=== PATIENT | male | born 1980 | race Hispanic/Latino ===

== ENCOUNTER 2017-07-20 17:42 | Observation (INO) | payer OTHER, SELFPAY ==
[2017-07-20 18:52] LABS: Bilirubin Negative (Negative); Blood, Urine Large (Negative); Clarity CLOUDY (Clear); Glucose, Urine (Dipstick) Negative (Negative); Leukocyte Large (Negative); Nitrite Negative (Negative); Protein, Urine (Dipstick) 30 mg/dL (Neg-Trace); Specific Gravity, Urine 1.017 (1.002-1.036); Urobilinogen 0.2 mg/dL (0.2-1.0); pH, Urine 6.5 (5.0-9.0)
[2017-07-20 18:58] LABS: Bacteria/HPF Rare-Few HPF (None Seen); Hyaline Casts/LPF 0-3 HYALINE CAST LPF (0-3 Hyaline); Pathc Cast-AUWi Flag 0.13 (0-2.49); RBC/HPF GREATER THAN 50-TNTC HPF (0-3); Squamous Epithelial None Seen HPF (0-3)
[2017-07-20 19:03] LABS: #Eosinphils 0.1 thou/uL (0.0-0.7); #Lymphocytes 1.6 thou/uL (1.20-3.40); #Monocytes 1.2 thou/uL (0.11-0.59); #Neutrophils 10.2 thou/uL (1.40-6.50); %Basophils 0.3 % (0.0-1.0); %Eosinophils 0.6 % (0.0-10.0); %Lymphocytes 12.5 % (21.0-51.0); %Monocytes 9.1 % (0.0-10.0); %Neutrophils 77.5 % (42.0-75.0); Hemoglobin 17.1 g/dL (14.0-18.0); Mean Corpuscular HGB CONC 32.5 g/dL (32.0-36.0); Mean Corpuscular Hemoglobin 28.5 pg (27.0-31.0); Mean Corpuscular Volume 87.5 fl (80.0-94.0); Mean Platelet Volume 7.8 fL (7.4-10.4); Platelet Count 166 thou/uL (130-400); RBC Distribution Width 14.2 % (11.5-14.5); Red Blood Cell (RBC) Count 6.03 mill/uL (4.70-6.10); White Blood Cell (WBC) Count 13.1 thou/uL (4.8-10.8)
[2017-07-20 19:28] LABS: ALT (SGPT) 28 U/L (8-55); AST (SGOT) 25 U/L (5-34); Alkaline Phosphatase 192 U/L (40-150); Anion Gap 13 mmol/L (10-20); BUN (Urea Nitrogen) 32 mg/dL (8.9-20.6); Bilirubin, Total 0.9 mg/dL (0.2-1.2); Calc. Creatinine Clearance 0 mL/min (70-130); Calcium 9.6 mg/dL (7.8-10.44); Carbon Dioxide 29 mmol/L (22-29); Chloride 99 mmol/L (98-107); Estimated GFR-MDRD 31; Globulin 4.7 g/dL (2.4-3.5); Glucose 98 mg/dL (70-105); Potassium 5.3 mmol/L (3.5-5.1); Protein, Total 8.7 g/dL (6.0-8.3); Sodium 136 mmol/L (136-145)
[2017-07-20] MEDS ORDERED: Ondansetron HCl/PF 4 MG/2 ML Vial ONE (21:34)
[2017-07-20] MEDS ORDERED: Ketorolac Tromethamine 30 MG/ML VIAL ONE (21:34)
--- NOTE | 2017-07-20 23:08 | CT ---
CT ABDOMEN NONCONTRAST CT PELVIS NONCONTRAST: (urolithiasis protocol) DATE: 07/20/17 TIME: 9:18 p.m. HISTORY: 37-year-old male with right flank pain, nausea, and difficulty urinary. COMPARISON: 01/31/17 TECHNIQUE: IV injection of iodinated contrast media: none Oral contrast media: none FINDINGS: Other than for urolithiasis, the lack of IV and oral contrast limits the evaluation. The previously demonstrated right sided percutaneous nephrostomy tube has been removed. There is a ne w finding of severe dilation of the entire right renal collecting system, and moderate dilation of th e entire right ureter, down to a new, irregularly triangular-shaped distal ureteral calculus measurin g approximately 5 x 4 x 3 mm, located at the S1-2 level of the pelvic inlet. A short distance of appr oximately 1 or 2 cm inferior to this, there is another distal ureteral calculus measuring 5 x 5 x 4 m m. There is another new finding of right nephromegaly, and unorganized fluid around the right kidney, probably representing extravasated urine from pyelocalyceal blowout due to the high grade obstructio n. There is no calculus within the urinary bladder. Again noted is the extensive bilateral medullary nephrocalcinosis. In addition, there is also bilater al nephrolithiasis, with multiple discrete round renal calculi, ranging from 2 mm for most of them, u p to 4 mm for the largest one in a right renal upper pole calyx. Again demonstrated is the malrotation of the left kidney, with anteriorly facing left renal pelvis, w hich is mildly dilated, similar to the previous study. There is no dilation of the left ureter. The u rinary bladder calixto are mildly thickened diffusely (previous CT showed severe mural thickening of th e collapsed urinary bladder and the presence of a 7 mm calculus within the urinary bladder). The prev iously demonstrated suprapubic catheter has been removed. Again noted are the cholecystectomy clips. Within the limitations of a noncontrast scan, no gross abnormality is identified involving the liver, abdominal aorta, adrenals, pancreas, or spleen. No signs of acute colonic diverticulitis. Single mckayla gical clip is again noted at midline, slightly superior and posterior to the bladder dome. Normal branden endix. No small bowel dilation. No free fluid or free air within the abdominal cavity or pelvic cavit y. Lung bases are grossly clear. IMPRESSION: 1. High grade right ureteral obstruction by two distal right ureteral calculi, causing severe ri ght hydronephrosis. 2. Bilateral nephrolithiasis. 3. Bilateral nephrocalcinosis. The differential diagnosis for this is renal tubular acidosis and medullary sponge kidney. 4. Malrotation of the left kidney. BELLA Jimenez POS: ROSA
[2017-07-20 23:10] LABS: PTT 30.8 SEC (22.9-36.1); Prothrombin Time 13.4 SEC (12.0-14.7)
[2017-07-20] MEDS ORDERED: cefTRIAXone\\ROCEPHIN 1 GM in Syringe 10 ML SLOW IVP SCH (23:30)
--- NOTE | 2017-07-20 23:32 | RAD ---
RADIOGRAPH CHEST 1 VIEW: 07/20/17 HISTORY: 37-year-old male for preoperative clearance. FINDINGS: There are no air space densities, pulmonary edema, pneumothorax, or cardiomegaly. The lateral costop hrenic angles are sharp. There are sternotomy wires. There is focal lentiform small density at the le ft lateral lower lung zone, probably representing scar. IMPRESSION: 1. No acute cardiopulmonary findings. 2. Evidence for previous open heart surgery. brendon [] POS: ROSA
[2017-07-21] MEDS ORDERED: Ondansetron HCl/PF 4 MG/2 ML Vial IVP PRN (00:44)
[2017-07-21] MEDS ORDERED: Ondansetron ODT 4 MG TAB SL PRN (00:44)
[2017-07-21] MEDS ORDERED: Morphine 2 mg/2ml in 0.9% NaCl PF SYRINGE SLOW IVP PRN ×2 (00:45→00:46)
[2017-07-21 00:56] VITALS: BMI 27.8
[2017-07-21] MEDS ORDERED: [UNRECOGNIZED DRUG - REMARK] FS SCH (01:00)
[2017-07-21] MEDS: Sodium Chloride 0.9% 1,000 ML IV SCH ×4 (01:15→20:32)
--- NOTE | 2017-07-21 02:19 | PDOC.EVN ---
Event Note - Event Note Event Note: [id number] H&P dictated 1. UTI 2. KAROLINE 3. Rt Hydronephrosis Plan: see orders
[2017-07-21] MEDS: Piperacillin/Tazobactam 3.375 GM in Sodium Chloride 0.9% 100 ML IVPB SCH ×2 (03:27→08:11)
[2017-07-21 04:33] LABS: #Lymphocytes 1.3 thou/uL (1.20-3.40); #Monocytes 1.5 thou/uL (0.11-0.59); #Neutrophils 10.7 thou/uL (1.40-6.50); %Eosinophils 0.4 % (0.0-10.0); %Lymphocytes 9.8 % (21.0-51.0); %Monocytes 10.7 % (0.0-10.0); %Neutrophils 79.1 % (42.0-75.0); Hemoglobin 15.7 g/dL (14.0-18.0); Mean Corpuscular Volume 87.5 fl (80.0-94.0); Mean Platelet Volume 8.1 fL (7.4-10.4); Platelet Count 168 thou/uL (130-400); RBC Distribution Width 14.2 % (11.5-14.5); Red Blood Cell (RBC) Count 5.62 mill/uL (4.70-6.10); White Blood Cell (WBC) Count 13.6 thou/uL (4.8-10.8)
[2017-07-21 04:46] LABS: ALT (SGPT) 25 U/L (8-55); AST (SGOT) 21 U/L (5-34); Albumin 3.4 g/dL (3.5-5.0); Alkaline Phosphatase 175 U/L (40-150); Anion Gap 13 mmol/L (10-20); BUN (Urea Nitrogen) 33 mg/dL (8.9-20.6); Bilirubin, Total 1.2 mg/dL (0.2-1.2); Calc. Creatinine Clearance 54 mL/min (70-130); Calcium 8.7 mg/dL (7.8-10.44); Carbon Dioxide 26 mmol/L (22-29); Chloride 102 mmol/L (98-107); Estimated GFR-MDRD 33; Globulin 3.8 g/dL (2.4-3.5); Glucose 97 mg/dL (70-105); Potassium 3.7 mmol/L (3.5-5.1); Protein, Total 7.2 g/dL (6.0-8.3); Sodium 137 mmol/L (136-145)
[2017-07-21] MEDS: Carvedilol 3.125 MG TAB PO SCH ×3 (08:01→17:56)
[2017-07-21] MEDS: Famotidine 20 MG TAB PO SCH ×2 (08:02→19:40)
--- NOTE | 2017-07-21 08:25 | HP ---
DATE OF ADMISSION: 07/20/2017 CHIEF COMPLAINT: Right-sided flank pain. HISTORY OF PRESENT ILLNESS: The patient is 37 years old male with past medical history of diabetes t ype 2, coronary artery disease, hyperlipidemia, nephrolithiasis, now came to the ER because of the ri ght-sided flank pain. Pain is stabbing kind of pain, 10/10, currently 2/10, improved with some pain medication. The pain started today, radiates towards the right inguinal region. Complains of some p assing stones in the urine also. Denies any fever, denies any chills. Denies any nausea, denies any vomiting at this time. Denies any dizziness, denies any palpitations. PAST MEDICAL HISTORY: As per HPI. PAST SURGICAL HISTORY: CABG. SOCIAL HISTORY: Denies smoking, denies alcohol, denies any drugs. FAMILY HISTORY: Positive for heart problems. MEDICATIONS: Reviewed. REVIEW OF SYSTEMS: Constitutional: Denies any fever, denies any chills. Eyes: Denies any vision p roblems. Ears: Denies any hearing problems. Neck: Denies any neck pain. Cardiovascular: Denies any chest pain, denies any palpitations. Respiratory: Denies any cough, denies production. Gastroi ntestinal: Positive for right flank pain. Genitourinary: Positive for stones in the urine. Psychi atric: Denies anxiety. Integumentary: Denies any rash. Musculoskeletal: Denies any joint deformi ties. All other review of systems are reviewed and are negative. PHYSICAL EXAMINATION: CONSTITUTIONAL/VITAL SIGNS: At the time of H and P performed, blood pressure is 119/78, temperature 90, pulse ox 97%, heart rate 97. GENERAL APPEARANCE: The patient appears comfortable. HEENT: Pupils equal, round, and reactive to light. Anterior nares patent. Nose normal. Ears yecenia l. Teeth intact. Tongue is moist. NECK: Supple. No JVD. CARDIOVASCULAR: S1, S2 present. Regular rate and rhythm. No murmurs, no rubs, no gallops. RESPIRATORY: No wheezing, no rhonchi. Breath sounds bilaterally. GASTROINTESTINAL: Abdomen is soft, nontender. No guarding, no organomegaly, no masses felt. MUSCULOSKELETAL: No edema. CRANIAL NERVE SYSTEM: Awake, follows commands. Strength intact, sensory intact. GENITOURINARY: Positive for mild right CVA tenderness. PSYCHIATRIC: Mood appropriate at this time. LABORATORY AND DIAGNOSTIC DATA: At the time of H and P performed, white count 13.1, hemoglobin 17.1, platelet count is 166. PT 13.4, INR 1. BMP shows sodium 136, potassium 5.3, chloride 99, CO2 of 29 , BUN of 32, creatinine 2.40, alkaline phosphatase 192. UA greater than 50 numerous rbc's, greater t lofton 50 to too numerous to count wbc's. CT abdomen and pelvis done in the ER, it is positive for high grade right ureteral obstruction by 2 distal right ureteral calculus causing severe right hydronephr osis, bilateral nephrocalcinosis. ASSESSMENT AND PLAN: The patient is 37 years old male. 1. Severe right-sided hydronephrosis plus acute kidney injury. Plan is to keep the patient n.p.o. The patient is scheduled for in the morning. We will monitor patient closely. 2. Hypertension. Continue home treatments. 3. History of coronary artery disease, status post coronary artery bypass graft. We will get cardio logy to evaluate the patient for possible cardiac clearance. 4. Urinary tract infection. Plan is to place the patient on broad spectrum antibiotics. The case was discussed in detail with the patient.
--- NOTE | 2017-07-21 11:08 | RAD ---
KUB: INDICATION: Assess for renal stones. COMPARISON: CT of the abdomen and pelvis dated 07/20/17. FINDINGS: There are small punctate calculi overlying the renal shadows bilaterally. The previously seen right distal ureteral calculi on the comparison CT are not clearly evident on the current abdominal radiogr aph. A small surgical clip within the pelvis is similar. No acute osseous abnormality is evident. The bowel gas pattern is unobstructed. IMPRESSION: 1. Stable bilateral nephrolithiasis. 2. The previously seen right distal ureteral calculi are not definite seen on the current exam. The findings were discussed with Dr. Sosa at 10:25 a.m. on 07/11/17. Clinically, the patient had r eportedly passed these 2 stones overnight. CODE CR POS: ROSA
[2017-07-21] MEDS ORDERED: Ciprofloxacin 500 MG TAB PO SCH ×2 (11:15→20:00)
--- NOTE | 2017-07-21 12:47 | CON ---
DATE OF CONSULTATION: 07/21/2017 INPATIENT CONSULTATION PRIMARY UROLOGIST: Dr. Kike Jovel. HISTORY OF PRESENT ILLNESS: Mr. Lantigua is a 36-year-old male, followed by Dr. Jovel. The patient presented with 1 day history of right-sided flank pain. He had mild leukocytosis of 13, creatinine of 2.2 with baseline creatinine variable from 1.4-2.5. The patient does have complicated urologic history in which he has had high-grade prostatic sphincteric urethral stricture , due to impacted urethral calculi, patient also known to have history of bladder stone, multiple bilateral kidney stones nephrocalcinosis. I reviewed his history on [facility], as well as [facility] as he has had procedures at both hospitals by Dr. Jovel. He previously had 2 cm stone in the bladder, underwent cystolitholapaxy, ureteral stent placement this year , presented with UTI, sepsis, complicated with chronic renal insufficiency. In 12/2016, he underwent urethral stricture dilatation, suprapubic tube insertion, and subsequent nephrostomy tube of obstructing ureteral calculi. This has been subsequently treated by Dr. Jovel. He underwent nephrostogram demonstrating no evidence of obstructing ureteral calculi. Upon review of [facility] chart, he underwent direct vision internal urethrotomy, his voiding status was monitored with suprapubic tube. Urodynamics demonstrated adequate bladder pressure with no evidence of obstructive parameters on peak flow; therefore his suprapubic tube was removed u 04/25/2017 as well as his nephrostomy tube. He states that his urinary caliber is adequate, denies sensation of incomplete void. Presents due to right flank pain. CT does demonstrate severe right hydronephrosis, demonstrating 2 ureteral calculi nidus in the distal ureter, each measuring 5-6 mm. There is no gross evidence of bladder stone. I did review the CT myself demonstrating that previous imaging demonstrated significant bladder wall thickening with bladder stone. His bladder appears to be normal morphology on recent CT scan. PAST MEDICAL HISTORY: 1. Coronary artery disease, status post CABG. 2. History of hypospadias. 3. Chronic renal insufficiency. 4. Bilateral nephrocalcinosis, recurrent. 5. Urethral stricture disease due to impacted urethral calculi. PAST SURGICAL HISTORY: Includes, 1. On 12/2015 laser lithotripsy of 2 cm bladder stone, left stent, left retrograde. 2. On 12/2016 cystoscopy, urethral stricture dilatation suprapubic tube placement. 3. Direct vision internal urethrotomy, 03/2017. 4. Coronary artery bypass graft, 03/2017. ALLERGIES: No known drug allergies. REVIEW OF SYSTEMS: Ten point review of systems is reviewed. SOCIAL HISTORY: Disabled. No children. PHYSICAL EXAMINATION: VITAL SIGNS: Stable. He is afebrile. Currently states that he feels significantly better with fluids and in pain management. Denies nausea, vomiting, fever at this time. HEENT: Unremarkable. HEART: Regular rate. LUNGS: Clear. ABDOMEN: Soft, surgical incisions consistent with above surgery. No suprapubic distention or tenderness appreciated. His SP tube site is noted in the lower abdomen. GENITOURINARY: Uncircumcised phallus, glandular hypospadias with no significant evidence of meatal stenosis. Testes are descended with no evidence of intratesticular mass, nontender. EXTREMITIES: No cyanosis, clubbing or edema. NEUROLOGIC: No gross focal deficits. PSYCHIATRIC: Appears appropriate. PERTINENT LABORATORY DATA: White count of 13, hemoglobin 15, platelets 468, 79 segs. PT, PTT and INR is normal. BUN 33, admitting creatinine is 2.4, this morning is 2.2. His baseline creatinine is variable from 1.4-2.5. Urinalysis is yellow, protein, greater than 50 RBCs, greater than 50 WBCs, negative epithelials, rare bacteria yellow large leukocytes. Urine culture is pending. He has been provided Rocephin and Levaquin in the ER, currently on Zosyn. IMAGIN07/20/2017 CT demonstrates severe right hydroureteronephrosis, prior right percutaneous nephrostomy tube and suprapubic tube has been subsequently removed. Two focus of right distal ureteral calculi measuring 5 x 4 x 3 mm at the level of S1-2, second nidus 5 x 5 x 5 x 4 mm just distal to this. Left kidney malrotated, no hydronephrosis, bilateral nephrocalcinosis. IMPRESSION AND PLAN: Mr. Lantigua is a pleasant 37-year-old male with history of: 1. Coronary artery disease status post coronary artery bypass graft. 2. Urologic issues of bilateral nephrocalcinosis, recurrent urolithiasis. 3. History of high-grade prostatic urethral stricture secondary to impacted stone treated, status post DVIU. 4. History of suprapubic tube and nephrostomy tube secondary to obstructing urethral stricture/ureteral stone treated and resolved. 5. Presents for new onset right flank pain due to distal ureteral calculi x2. I did discuss with the patient regarding indications for cystoscopy, right retrograde stent placement. Due to patient's history of high-grade urethral stricture, possibility of suprapubic tube, nephrostomy tube again was discussed with the patient. He desires to proceed. All questions have encouraged and answered. Patient is n.p.o. MTDD
--- NOTE | 2017-07-21 13:49 | PDOC.EVN ---
Event Note - Event Note Event Note: Chart reviewed. Patient seen. Discussed with urology service. Pt mel to be discharged home later today or tomorrow.
[2017-07-21] MEDS: Acetaminophen 325 MG TAB PO PRN ×2 (13:51→19:43)
[2017-07-21] MEDS ORDERED: Heparin 5,000 UNITS/ML VIAL SC SCH (21:00)
[2017-07-21] MEDS: cefTRIAXone\\ROCEPHIN 2 GM in Sodium Chloride 0.9% 100 ML IVPB SCH (23:10)
[2017-07-22] MEDS: Acetaminophen 325 MG TAB PO PRN ×2 (04:00→16:42)
[2017-07-22] MEDS: Carvedilol 3.125 MG TAB PO SCH ×3 (07:51→16:42)
[2017-07-22] MEDS: Famotidine 20 MG TAB PO SCH ×2 (07:51→20:24)
[2017-07-22] MEDS: Sodium Chloride 0.9% 1,000 ML IV SCH ×3 (07:55→22:53)
--- NOTE | 2017-07-22 11:04 | PRG ---
DATE OF SERVICE: 07/22/2017 INPATIENT PROGRESS NOTE SUBJECTIVE: The patient is ambulating in the hallway, in no acute distress. He states that he feels well. Denies flank pain, suprapubic tenderness, or sensation of incomplete void. PHYSICAL EXAMINATION: VITAL SIGNS: T-max of 102.6, T-current is 101.1, 106, 12, 94, 113/73. The patient voiding without significant issues. ABDOMEN: Soft. No CVA tenderness. No suprapubic tenderness, no blood per meatus. The patient voiding spontaneously. LABORATORY DATA: Urine culture and blood culture is pending thus far. IMPRESSION AND PLAN: 1. Mr. Lantigua is a pleasant 37-year-old male with history of bilateral nephrocalcinosis. 2. History of severe right hydronephrosis with two stone nidus spontaneously passed yesterday which I visualized myself, sent for chemical analysis. 3. The patient was kept inhouse due to fever, urinary tract infection component. He is on broad spectrum antibiotics with Levaquin, Rocephin. Clinically, he appears to be doing well. Informed patient that he will be monitored until final urine culture for appropriate sensitivity ATB. Continue IV fluids and broad spectrum antibiotics. will inform Dr. Jovel tomorrow to resume care. BEN
--- NOTE | 2017-07-22 14:06 | PDOC.PN ---
- Subjective Encounter Start Date: 07/22/17 Encounter Start Time: 10:00 Pt seen for followup re: UTI. No chest pain, shortness of breath. Had fever yesterday. - Objective Vital Signs & Weight: Vital Signs (12 hours) Temp Pulse Resp BP Pulse Ox 07/22/17 12:53 98.8 F 07/22/17 08:24 98.5 F 92 16 101/72 95 07/22/17 08:00 101.1 F H 106 H 12 07/22/17 04:26 94 L 07/22/17 03:20 101.1 F H 106 H 12 113/73 94 L I&O: 07/21/17 07/22/17 07/23/17 06:59 06:59 06:59 Intake Total 2450 Balance 2450 Result Diagrams: 07/21/17 03:14 07/21/17 03:14 Phys Exam - Physical Examination Constitutional: NAD HEENT: PERRLA, moist MMs, sclera anicteric, oral pharynx no lesions Neck: supple Respiratory: no wheezing, no rales, no rhonchi, clear to auscultation bilateral Cardiovascular: RRR, no rub Gastrointestinal: soft, non-tender, no distention, positive bowel sounds Musculoskeletal: pulses present Neurological: moves all 4 limbs Psychiatric: normal affect, A&O x 3 Skin: no rash, normal turgor, cap refill <2 seconds Dx/Plan (1) UTI (urinary tract infection) Status: Acute (2) HTN (hypertension) Code(s): I10 - ESSENTIAL (PRIMARY) HYPERTENSION Status: Chronic (3) CAD (coronary artery disease) Code(s): I25.10 - ATHSCL HEART DISEASE OF [place] CORONARY ARTERY W/O ANG PCTRS Status: Chronic (4) Nephrolithiasis Status: Chronic (5) Type 2 diabetes mellitus Status: Chronic - Plan continue antibiotics, out of bed/ambulate * . Continue IV antibiotics, urine cultures growing Enterococcus and yeast, await sensitivities. Monitor vital signs, titrate antihypertensives. Start accuchecks, insulin sliding scale. CAD stable. Review of Systems - Review of Systems Constitutional: Fever. negative: Chills, Sweats, Weakness, Malaise Respiratory: negative: Cough, Dry, Shortness of Breath, Hemoptysis, SOB with Excertion, Pleuritic Pain, Sputum, Wheezing Cardiovascular: negative: Chest Pain, Palpitations, Orthopnea, Paroxysmal Noc. Dyspnea, Edema, Light Headedness Gastrointestinal: negative: Nausea, Vomiting, Abdominal Pain, Diarrhea, Constipation, Melena, Hematochezia Genitourinary: negative: Dysuria, Frequency, Incontinence, Hematuria, Retention - Medications/Allergies Allergies/Adverse Reactions: Allergies Allergy/AdvReac Type Severity Reaction Status Date / Time No Known Drug Allergies Allergy Verified 03/16/17 15:17 Medications: Current Medications Acetaminophen (Tylenol) 650 mg PO Q4H PRN PRN Reason: Headache/Fever or Pain Last Admin: 07/22/17 04:00 Dose: 650 mg Carvedilol (Coreg) 3.125 mg PO BID-[facility] Last Admin: 07/22/17 07:55 Dose: Not Given Famotidine (Pepcid) 20 mg PO BID [facility] Last Admin: 07/22/17 07:51 Dose: 20 mg Sodium Chloride (Normal Saline 0.9%) 1,000 mls @ 125 mls/hr IV .Q8H [facility] Stop: 07/26/17 11:10 Last Admin: 07/22/17 07:55 Dose: 1,000 mls Ceftriaxone Sodium 2 gm/ (Sodium Chloride) 100 mls @ 200 mls/hr IVPB 2300 [facility] Last Admin: 07/21/17 23:10 Dose: 100 mls Levofloxacin 500 mg/ Device 100 mls @ 100 mls/hr IVPB 2359 [facility] Last Admin: 07/21/17 23:10 Dose: 100 mls No Aspirin 0 each FS ASDIR [facility] Sodium Chloride (Flush - Normal Saline) 10 ml IVF Q12HR [facility] Last Admin: 07/22/17 07:51 Dose: 10 ml Sodium Chloride (Flush - Normal Saline) 10 ml IVF PRN PRN PRN Reason: Saline Flush
[2017-07-22] MEDS ORDERED: Dextrose 5% in Water 1,000 ML IV PRN (14:13)
[2017-07-22] MEDS ORDERED: HumaLOG 300 UNITS/3 ML VIAL SC PRN (14:13)
[2017-07-22] MEDS ORDERED: Dextrose 50% Abboject 50 ML SYRINGE SLOW IVP PRN (14:13)
[2017-07-22] MEDS: cefTRIAXone\\ROCEPHIN 2 GM in Sodium Chloride 0.9% 100 ML IVPB SCH (22:54)
[2017-07-23] MEDS: Acetaminophen 325 MG TAB PO PRN (00:22)
[2017-07-23 04:25] LABS: #Eosinphils 0.2 thou/uL (0.0-0.7); #Lymphocytes 1.6 thou/uL (1.20-3.40); #Monocytes 1.3 thou/uL (0.11-0.59); #Neutrophils 6.1 thou/uL (1.40-6.50); %Basophils 0.1 % (0.0-1.0); %Eosinophils 1.7 % (0.0-10.0); %Lymphocytes 17.3 % (21.0-51.0); %Monocytes 13.8 % (0.0-10.0); %Neutrophils 67.1 % (42.0-75.0); Hemoglobin 14.6 g/dL (14.0-18.0); Mean Corpuscular HGB CONC 32.4 g/dL (32.0-36.0); Mean Corpuscular Hemoglobin 28.4 pg (27.0-31.0); Mean Corpuscular Volume 87.7 fl (80.0-94.0); Mean Platelet Volume 8.3 fL (7.4-10.4); Platelet Count 135 thou/uL (130-400); RBC Distribution Width 14.4 % (11.5-14.5); Red Blood Cell (RBC) Count 5.15 mill/uL (4.70-6.10); White Blood Cell (WBC) Count 9.1 thou/uL (4.8-10.8)
[2017-07-23 04:54] LABS: Anion Gap 13 mmol/L (10-20); BUN (Urea Nitrogen) 20 mg/dL (8.9-20.6); Calc. Creatinine Clearance 68 mL/min (70-130); Calcium 8.5 mg/dL (7.8-10.44); Carbon Dioxide 26 mmol/L (22-29); Chloride 101 mmol/L (98-107); Estimated GFR-MDRD 43; Glucose 117 mg/dL (70-105); Sodium 137 mmol/L (136-145)
[2017-07-23] MEDS: Carvedilol 3.125 MG TAB PO SCH ×2 (08:18→16:57)
[2017-07-23] MEDS: Famotidine 20 MG TAB PO SCH (08:18)
[2017-07-23] MEDS: Sodium Chloride 0.9% 1,000 ML IV SCH ×2 (08:19→16:57)
[2017-07-23] MEDS: Potassium Chloride 20 MEQ TAB PO SCH ×2 (12:50→16:57)
[2017-07-23] MEDS: FLU VACC QS2017-18 36 mo. & older 0.5 ML SYRINGE IM ONE ×2 (12:58→12:59)
--- NOTE | 2017-07-23 13:46 | DIS ---
DATE OF ADMISSION: 07/21/2017 DATE OF DISCHARGE: 07/23/2017 PRIMARY CARE PROVIDER: [facility] kiley. DISCHARGE DIAGNOSES: 1. Urinary tract infection. 2. Nephrolithiasis. CONDITION OF PATIENT ON THE DAY OF DISCHARGE: Stable. I assess Mr. Lantigua on the day of discharge . He denies any chest pain or shortness of breath. Vital signs are stable. S1 and S2 are heard, re gular. Lungs are clear to auscultation bilaterally. HOSPITAL COURSE: Mr. Lantigua is a pleasant 37-year-old gentleman who was admitted to [facility] on 07/21/2017 for urinary tract infection as well as nephrolithiasis. He had two distal ureteral calculi. Urology service was consulted. Dr. Sosa initially planned to do cy stoscopy. However, the patient passed the two stones. Urine cultures grew yeast as well as Enterococcus. Enterococcus was resistant to fluoroquinolones, b ut was otherwise sensitive to other antibiotics. He is being discharged home on Augmentin. DISCHARGE MEDICATIONS: Coreg 3.125 mg 2 times a day, Augmentin 500 mg 2 times a day for 1 week. On the day of discharge, Mr. Lantigua has a white count of 9100, hemoglobin 14.6, platelet count 135, 000. Sodium 137, potassium 3.0, which is being replaced, creatinine 1.79. Many thanks for allowing me to participate in your patient's care. Please feel free to contact me wi th any questions or concerns. DISCHARGE DESTINATION: Home. TOTAL AMOUNT OF TIME SPENT COORDINATING THIS DISCHARGE: 33 minutes.
[2017-07-23 17:41] VITALS: BP 142/92; TEMP 98.2
[2017-07-23] MEDS ORDERED: Amoxicillin/Potassium Clav 500 MG TAB PO SCH (21:00)
[2017-07-27 09:15] LABS: CA Phosphate 95 % (.); Color Tan (.); Comment Note: (.)
--- NOTE | 2017-08-04 15:00 | EKG ---
Test Reason : Blood Pressure : / mmHG Vent. Rate : 098 BPM Atrial Rate : 098 BPM P-R Int : 134 ms QRS Dur : 078 ms QT Int : 336 ms P-R-T Axes : 021 014 100 degrees QTc Int : 428 ms Normal sinus rhythm Anteroseptal infarct , age undetermined Abnormal ECG Confirmed by KENNY FLORES D.O. ([id number]), proposal editor KAI ELKINS ([id number]) on 08/04/2017 2:59:30 PM Referred By: Confirmed By:KENNY FLORES D.O.
== END 2017-07-23 17:25 | disposition home or self-care (01) ==
LOC: ERS 17:42 → T4-A 07-21 00:39 → INTOOBSV 07-21 00:39
PROVIDERS: ADMIT Internal Medicine; ATTEND Internal Medicine
DX: N39.0 Urinary tract infection, site not specified (principal); N20.0 Calculus of kidney; I25.10 Atherosclerotic heart disease of native coronary artery without angina pectoris; E78.5 Hyperlipidemia, unspecified; N13.30 Unspecified hydronephrosis; E11.22 Type 2 diabetes mellitus with diabetic chronic kidney disease; N18.9 Chronic kidney disease, unspecified; Z79.899 Other long term (current) drug therapy; Z95.1 Presence of aortocoronary bypass graft; Z96.0 Presence of urogenital implants; Z90.49 Acquired absence of other specified parts of digestive tract; Z98.890 Other specified postprocedural states
CPT/HCPCS: 36415; 36416; 71010; 74000; 74176; 80048; 80053; 81003; 81015; 82365; 85025; 85610; 85730; 87040; 87077; 87086; 87186; 88300; 93005; 96361; 96365; 96366; 96375; A4216; G0378; J0696; J1885; J1956; J2405; J2543; J7050

== ENCOUNTER 2020-10-26 12:14 | Observation (INO) | payer OTHER, SELFPAY ==
[2020-10-26 12:47] LABS: #Basophils 0.1 thou/uL (0.0-0.2); #Eosinphils 0.1 thou/uL (0.0-0.7); #Lymphocytes 2.2 thou/uL (1.20-3.40); #Monocytes 0.6 thou/uL (0.11-0.59); #Neutrophils 5.7 thou/uL (1.40-6.50); %Basophils 0.6 % (0.0-1.0); %Eosinophils 1.4 % (0.0-10.0); %Lymphocytes 25.5 % (21.0-51.0); %Monocytes 6.7 % (0.0-10.0); %Neutrophils 65.7 % (42.0-75.0); Hemoglobin 19.3 g/dL (14.0-18.0); Mean Corpuscular HGB CONC 34.3 g/dL (32.0-36.0); Mean Corpuscular Hemoglobin 30.8 pg (27.0-31.0); Mean Corpuscular Volume 89.9 fL (78.0-98.0); Mean Platelet Volume 8.4 fL (7.4-10.4); Platelet Count 157 thou/uL (130-400); RBC Distribution Width 12.7 % (11.5-14.5); Red Blood Cell (RBC) Count 6.27 mill/uL (4.70-6.10); White Blood Cell (WBC) Count 8.6 thou/uL (4.8-10.8)
[2020-10-26] MEDS ORDERED: Nitroglycerin 0.4 MG TAB 1 EACH ONE (12:59)
[2020-10-26] MEDS ORDERED: Aspirin Chewable 81 MG TAB ONE (12:59)
[2020-10-26 13:24] LABS: ALT (SGPT) 21 U/L (8-55); AST (SGOT) 19 U/L (5-34); Albumin 3.9 g/dL (3.5-5.0); Alkaline Phosphatase 267 U/L (40-110); Anion Gap 12 mmol/L (10-20); BUN (Urea Nitrogen) 26 mg/dL (8.9-20.6); Calc. Creatinine Clearance 0 mL/min (70-130); Carbon Dioxide 32 mmol/L (22-29); Chloride 92 mmol/L (98-107); Globulin 4.4 g/dL (2.4-3.5); Glucose 417 mg/dL (70-105); Potassium 3.5 mmol/L (3.5-5.1); Protein, Total 8.3 g/dL (6.0-8.3); Sodium 132 mmol/L (136-145)
[2020-10-26] MEDS ORDERED: Acetaminophen 325 MG TAB PO PRN (15:55)
[2020-10-26] MEDS ORDERED: Nitroglycerin 0.4 MG TAB (25 Tab Bottle) SL PRN (16:00)
[2020-10-26] MEDS ORDERED: Dextrose 50% Abboject 50 ML SYRINGE SLOW IVP PRN (16:04)
[2020-10-26] MEDS ORDERED: Dextrose 5% in Water 1,000 ML IV PRN (16:04)
[2020-10-26 18:47] VITALS: BMI 28.0
[2020-10-26 19:46] LABS: Troponin I 0.013 ng/mL (< 0.028)
[2020-10-26] MEDS: Famotidine 20 MG TAB PO SCH (20:44)
[2020-10-26] MEDS: HumaLOG 300 UNITS/3 ML VIAL SC PRN (20:44)
[2020-10-26] MEDS: Sodium Chloride 0.9% 1,000 ML IV SCH (20:47)
[2020-10-26 23:43] LABS: SARS-CoV-2 PCR by NAA Not Detected (NotDetected)
[2020-10-27] MEDS: Sodium Chloride 0.9% 1,000 ML IV SCH ×2 (05:55→12:20)
[2020-10-27 06:03] LABS: Hemoglobin A1c 13.9 % (4.0-6.0)
[2020-10-27 06:14] LABS: Cardiac Risk 6.2 (Less than 4.5)
[2020-10-27] MEDS: Famotidine 20 MG TAB PO SCH (08:07)
[2020-10-27] MEDS ORDERED: Regadenoson 0.4 MG/5 ML SYRINGE ONE (08:38)
[2020-10-27] MEDS ORDERED: Aspirin Chewable 81 MG TAB PO SCH (09:00)
[2020-10-27 12:23] VITALS: BP 152/93; TEMP 98.1
[2020-10-27] MEDS: HumaLOG 300 UNITS/3 ML VIAL SC PRN (12:24)
[2020-10-27] MEDS ORDERED: Atorvastatin Calcium 40 MG TAB PO SCH (21:00)
== END 2020-10-27 18:05 | disposition home or self-care (01) ==
LOC: ERS 12:14 → ERHOLD 13:56 → 2SW 18:33
PROVIDERS: ADMIT Internal Medicine; ATTEND Internal Medicine
DX: I25.118 Atherosclerotic heart disease of native coronary artery with other forms of angina pectoris (principal); I12.9 Hypertensive chronic kidney disease with stage 1 through stage 4 chronic kidney disease, or unspecified chronic kidney disease; E11.22 Type 2 diabetes mellitus with diabetic chronic kidney disease; N18.30 Chronic kidney disease, stage 3 unspecified; I25.10 Atherosclerotic heart disease of native coronary artery without angina pectoris; D75.1 Secondary polycythemia; I25.2 Old myocardial infarction; Z95.1 Presence of aortocoronary bypass graft; Z20.822 Contact with and (suspected) exposure to COVID-19
CPT/HCPCS: 36415; 36416; 71045; 78452; 80053; 80061; 83036; 83880; 84484; 85025; 85379; 87635; 93005; 93017; 94760; A9500; G0378; J1815; J2785; U0003; U0005

== ENCOUNTER 2021-01-12 15:33 | Emergency (ER) | payer OTHER ==
[~2021-01-12 15:33] MED LIST: Iopamidol-370 76% 500 ML 1 ML ONE
[2021-01-12 16:04] LABS: Bilirubin Negative (Negative); Blood, Urine Large (Negative); Glucose, Urine (Dipstick) Negative (Negative); Ketone, Urine Negative (Negative); Leukocyte Moderate (Negative); Nitrite Negative (Negative); Protein, Urine (Dipstick) Negative (Neg-Trace); Urobilinogen 0.2 mg/dL (Less than 2); pH, Urine 6.5 (5.0-9.0)
[2021-01-12 16:06] LABS: Clarity Clear (Clear)
[2021-01-12 16:07] LABS: Squamous Epithelial None Seen HPF (0-3); WBC/HPF 21-50 HPF (0-3)
[2021-01-12 16:08] LABS: Bacteria/HPF 1+ HPF (None Seen)
[2021-01-12 16:31] LABS: #Eosinphils 0.1 thou/uL (0.0-0.7); #Lymphocytes 2.5 thou/uL (1.20-3.40); #Monocytes 0.7 thou/uL (0.11-0.59); #Neutrophils 5.2 thou/uL (1.40-6.50); %Basophils 0.3 % (0.0-1.0); %Eosinophils 1.3 % (0.0-10.0); %Lymphocytes 28.9 % (21.0-51.0); %Monocytes 8.6 % (0.0-10.0); %Neutrophils 60.9 % (42.0-75.0); Hemoglobin 18.7 g/dL (14.0-18.0); Mean Corpuscular HGB CONC 33.4 g/dL (32.0-36.0); Mean Corpuscular Volume 92.7 fL (78.0-98.0); Mean Platelet Volume 8.3 fL (7.4-10.4); Platelet Count 156 thou/uL (130-400); RBC Distribution Width 13.2 % (11.5-14.5); Red Blood Cell (RBC) Count 6.03 mill/uL (4.70-6.10); White Blood Cell (WBC) Count 8.6 thou/uL (4.8-10.8)
[2021-01-12 16:32] LABS: ALT (SGPT) 34 U/L (8-55); AST (SGOT) 23 U/L (5-34); Albumin 4.1 g/dL (3.5-5.0); Alkaline Phosphatase 192 U/L (40-110); Anion Gap 13 mmol/L (10-20); BUN (Urea Nitrogen) 33 mg/dL (8.9-20.6); Bilirubin, Total 0.8 mg/dL (0.2-1.2); Calc. Creatinine Clearance 0 mL/min (70-130); Calcium 9.3 mg/dL (7.8-10.44); Carbon Dioxide 30 mmol/L (22-29); Chloride 98 mmol/L (98-107); Globulin 3.9 g/dL (2.4-3.5); Glucose 87 mg/dL (70-105); Potassium 3.5 mmol/L (3.5-5.1); Sodium 137 mmol/L (136-145)
[2021-01-12] MEDS ORDERED: Ondansetron PF 4 MG/2 ML Vial ONE (16:54)
[2021-01-12] MEDS ORDERED: Ketorolac Tromethamine 30 MG/ML VIAL ONE (16:54)
[2021-01-12] MEDS ORDERED: cefTRIAXone\\ROCEPHIN 2 GM VIAL ONE (16:54)
[2021-01-12] MEDS ORDERED: methylPREDNISolone Sod Succ/PF 125 MG/2 ML VIAL ONE (17:41)
[2021-01-12] MEDS ORDERED: diphenhydrAMINE 50 MG/ML VIAL ONE (17:41)
== END 2021-01-12 18:55 | disposition home or self-care (01) ==
LOC: ERS 15:33
DX: N39.0 Urinary tract infection, site not specified (principal); I10 Essential (primary) hypertension; E11.9 Type 2 diabetes mellitus without complications; Z79.899 Other long term (current) drug therapy; Z79.82 Long term (current) use of aspirin
CPT/HCPCS: 36415; 74177; 80053; 81003; 81015; 83605; 83690; 84484; 85025; 87040; 87086; 93005; 96365; 96375; J0696; J1200; J1885; J2405; J2930; Q9967